=== PATIENT | male | born 1950 | race Caucasian/White ===

== ENCOUNTER 2017-02-01 09:23 | Day surgery (SDC) | payer MEDICARE, OTHER ==
[~2017-02-01] VITALS: Ht 175.3 cm; Wt 111.6 kg
[~2017-02-01 09:23] MED LIST: ALBU6.7H INH; ALLO300T2 PO; ASPI-628 PO; ATOR80TA77 PO; CARV12.52 PO; FENO145T19 PO; FLUT12AE8 IH; FURO40SO4 PO; INSU100I; INSU100I13 SUBQ; LORA10CA PO; Lactated Ringer's 1,000 ML IV ONE; OMEG1CAP25 PO; POTA10TA12 PO; PRE20 PO; TADA20TA PO; TEST1.25 TD; [UNRECOGNIZED DRUG - CODE] PO
[2017-02-01] MEDS ORDERED: fentaNYL-PF 50 mCg/mL 2 mL Inj ONE (09:24)
[2017-02-01 10:00] VITALS: BP 144/85; PULSE 59; RESP 18; O2SAT 98
[2017-02-01] MEDS ORDERED: Lactated Ringer's 1,000 ML IV SCH (10:16)
--- NOTE | 2017-02-01 10:16 | PCM.HPANE ---
Patient Data Surgeon Admitting Provider: Attending Provider:Lui Gómez MD Primary Care Physician:Bessie Newberry MD Other Provider:Stephanie Hernandez Anesthesia Reason for Visit Colon Cancer Screening Ht/WT & BMI Height (Feet): 5 Height (Inches): 9 Weight (Kilograms): 111.58 Body Mass Index 36.00 Allergies Coded Allergies: No Known Allergies (Verified Allergy, Unknown, 04/25/15) Uncoded Allergies: INCREASED CONCENTRATION OF SODIUM PRODUCTS (Adverse Reaction, Severe, COUGH , 02/02/13) Past Anesthesia History Anesthesia History: Denies:: Abnormal Airway, Anesthesia Reactions, Difficult Intubation, Fam Malignant Hypertherm, Malignant Hyperthermia Diabetes History Hx Diabetes?: Yes Type of Diabetes: Type II Glycemic Control: Insulin Dependent Current Bedside Blood Glucose: 140 MRSA MRSA: No Medications Blood Thinner: Aspirin Reported Medications Testosterone (Androgel)1.25 Gm Gel.packet1.25 Gm TD DAILY 01/31/17 Albuterol Sulfate (Proventil HFA Inhaler)6.7 Gm Hfa.aer.ad2 Puff INH Q4 PRN For Shortness of Breath #1 INHALER Ref 0 04/23/15 Prednisone (PredniSONE)20 Mg Bytkqo68 Mg PO DAILY PRN gout flare Ref 0 04/23/15 Potassium Chloride ER 10 Meq Tablet.er10 Meq PO DAILY 30 Days Ref 0 TAKE WITH FOOD 04/23/15 [place]-3 Fatty Acids/Fish Oil ([place] 3 Fish Oil Softgel)1 Each Capsule.dr2 Each PO DAILY 04/23/15 Insulin Aspart (NovoLOG U-100 Pen)100 Unit/Ml Insuln.pen30 Bid 04/23/15 Insulin Glargine (Lantus U100 Solostar Insulin Pen)100 Unit/1 Ml Insuln.pen40 Unit SUBQ BID #1 PENINJ Ref 0 04/23/15 Furosemide 40 Mg/4 Ml Sgjoljlx86 Mg PO DAILY 30 Days Ref 0 04/23/15 Fluticasone Propionate (Flovent HFA 110 mcg)12 Gm Aer.w.adap1 Puff IH BID #12 GM Ref 0 04/23/15 Methylcellulose (Fiber Therapy)500 Mg Wormwq461 Mg PO DAILY 04/23/15 Fenofibrate Nanocrystallized (Fenofibrate)145 Mg Qpkcwp541 Mg PO HS 30 Days Ref 0 04/23/15 Loratadine (Claritin)10 Mg Fpawvux59 Mg PO DAILY 30 Days Ref 0 04/23/15 Carvedilol 12.5 Mg Knnwpo86.5 Mg PO BID 30 Days Ref 0 04/23/15 Atorvastatin Calcium 80 Mg Voqgqs24 Mg PO DAILY 30 Days Ref 0 04/23/15 Aspirin (Aspir 81)81 Mg Tablet.dr81 Mg PO DAILY Ref 0 04/23/15 Allopurinol 300 Mg Pucypa450 Mg PO DAILY #30 TABLET Ref 0 04/23/15 Discontinued Reported Medications Tadalafil (Cialis)20 Mg Qfiqur18 Mg PO PRN PRN erectile dysfunction 30 Days Ref 0 As directed by physician. 04/23/15 Amlodipine 5 Mg Tablet5 Mg PO DAILY 30 Days Ref 0 04/23/15 Tamsulosin ER 0.4 Mg Cap.er.24h0.4 Mg PO DAILY 30 Days Ref 0 04/23/15 History History of ENT Problems?: Yes HEENT History: Positive for:: Hearing Problem (slight WAINWRIGHT) Denies:: Abnormal Airway Cataracts Difficult Intubation Dysphagia Sinus Problem (HX NASAL FX) TMJ Hx of Heart Problems?: Yes Cardiovascular History: Positive for:: Hypertension (HYPERLIPIDEMIA) Denies:: AICD Abdominal Aortic Aneurism Atrial Fibrillation Cardiac Surgery Chest Pain Congestive Heart Failure Edema Heart Murmur Irregular Heartbeat Pacemaker Rheumatic Fever Thrombophlebitis Valvular Heart Disease Hx of Respiratory Problem?: Yes Respiratory History: Positive for:: Asthma Cough Use of C-PAP Machine (LUCY+) Denies:: Chest Surgery (HX OF PNEUMOTHORAX) Oxygen Administration Hx Neurologic Problems?: No Neurological History: Denies:: Alzheimer's Disease CVA Dementia Dizziness Headaches Multiple Sclerosis Parkinson's Disease Seizures Hx of GI Problems?: Yes Gastrointestinal History: Positive for:: Gastroesphageal Reflux Denies:: Cirrhosis Diverticulitis (HX DIVERTICULOSIS) Gastrointestinal Bleeding Heartburn Hepatitis Hiatal Hernia Rectal Bleeding Other GI Pertinent History: HAS ONLY ONE KIDNEY @ 20 % Hx of Problems?: Yes Genitourinary History: Denies:: HX of Hemodialysis (HX OF CHRONIC RENAL INSUFF , & ANEMIA) Male Hx: Positive for:: Prostate Problems (BPH) Testicular Surgery (S/P VASECTOMY) Denies:: Scrotal Mass Skin History: Denies:: History Skin Disorders? (S/P EXC BENIGN TUMOR POSTERIOR NECK) Pressure Ulcers Hx Musculoskeletal Problems?: Yes Musculoskeletal History: Denies:: Back Injury Degenerative Joint Joint Replacement Musculoskeletal Trauma Systemic Lupus Hx of Psycho/Social Problems?: No Psycho Social History: Denies:: Anxiety Hx Depression Hx Surgeries?: Yes (nephrectomy, chela) Hx Any Other Health Problems?: No Other History: Positive for:: Cancer (renal cancer) Denies:: Endocrine Disease Hospitalization Thyroid Disease History Blood Transfusions: Denies:: Blood Transfuse Reaction Blood Transfusions Hx Diabetes: YesBedside Blood Glucose: 140 Hx Alcohol Use: NoHx Substance Use: No Smoking Status: Never Smoker Have You Smoked inLast 12 mo: No Stop/Bang Treated for Sleep Apnea?: Yes Do You Have a CPAP Machine?: Yes LUCY Risk Assessment: High Risk, =/>3 Yes Risk Assessment Category Category 1A: Patient has history of documented sleep apnea, and HAS NOT received any narcotic, sedative or anesthesia administration during this stay. Category 1B: Patient has history of documented sleep apnea, and HAS received any narcotic , sedative or anesthesia administration during this stay Category 2: Patient has SUSPECTED Obstructive Sleep Apnea, and HAS received any narcotic , sedative or anesthesia administration during this stay. Category 3: Patient has SUSPECTED Obstructive Sleep Apnea and HAS NOT received narcotic, sedative or anesthesia administration during this stay. Category 4: Outpatient in Procedural Areas with known sleep apnea or who screen positive for High Risk via the STOP/BANG questionnaire. Exam Exam Vital Signs Vital Signs Date Time Temp Pulse Resp B/P Pulse Ox O2 Delivery O2 Flow Rate FiO2 02/01/17 10:00 59 18 144/85 98 Room Air General Appearance: Alert, Oriented X3, Cooperative, No Acute Distress HEENT/AIRWAY: MP 2 Lungs: Clear to Auscultation, Normal Air Movement Heart: Exam Unremarkable, Regular Rate/Rhythm, No Murmurs/Rubs/Gallops Meds/Labs/Diagnostics Bedside Blood Glucose: 140 Plan Impression Patient chart reviewed, patient interviewed and anesthestic plan with risks, benefits, and alternatives discussed, and informed consent obtained. NPO Status: > 8 hrs ASA Physical Status: ASA3 Severe Disease Anesthetic Plan: MAC Bene/Risks/Altern/Consents: Yes HP Complete Prior to Induction: Yes Neri Salinas MD Feb 01, 2017 10:16
[2017-02-01] MEDS ORDERED: MetoCLOpramide 5 mg/mL 2 mL Inj IVPUSH PRN (10:20)
[2017-02-01] MEDS ORDERED: Ondansetron 2 mg/mL 2 mL Inj IVPUSH PRN (10:20)
[2017-02-01 11:16] VITALS: BP 111/64; PULSE 53; RESP 14; O2SAT 94
[2017-02-01 11:25] VITALS: BP 133/74; PULSE 53; RESP 12; O2SAT 95
--- NOTE | 2017-02-01 11:25 | PCM.ANEP1 ---
Post Anesthesia Phase 1 PACU Phase 1 Assessment Vital Signs Vital Signs Date Time Temp Pulse Resp B/P Pulse Ox O2 Delivery O2 Flow Rate FiO2 02/01/17 11:16 53 14 111/64 94 Room Air 02/01/17 10:00 59 18 144/85 98 Room Air Anesthetic Administered: MAC Level of Alertness: Awake, talking ROCHA's with Equal Strength: Yes Pain: No Nausea or Vomiting: No Oxygen Delivery: Room Air Lungs: Clear to Auscultation, Normal Air Movement Dermatome Level: Full Sensation Neri Salinas MD Feb 01, 2017 11:25
--- NOTE | 2017-02-01 11:39 | PCM.ANEP2 ---
Post Anesthesia Evaluation ASA/CMS Post Anesthesia VS in Patient's Normal Range?: Yes Resp Stable; Airway Patent?: Yes CV Function & Hydration Stable: Yes Mental Status Recovered?: Yes Pain control Satisfactory?: Yes N/V Control Satisfactory?: Yes Neri Salinas MD Feb 01, 2017 11:38
--- NOTE | 2017-02-01 11:45 | ENDO ---
[address] [address] ENDOSCOPY PROCEDURE PATIENT: JANNET ROMERO : 1950 MR#: [id number] ADMIT: 02/01/2017 JOB ID: [id number] DATE: 02/01/2017 PRIMARY PROVIDER: Bessie Newberry MD. PROCEDURE: Colonoscopy with cold forceps polypectomy. INDICATION: A 66-year-old male who reports for colon cancer screening. EQUIPMENT: PCF-H180 AL. SEDATION: Monitored anesthesia with as provided by Dr. Neri Salinas. COMPLICATIONS: None identified. BOWEL PREPARATION: Fair, adequate exam. PROCEDURE INFORMATION: After the risks and benefits were explained, written and verbal informed consent was obtained. The patient was brought into the endoscopy suite and placed into the left lateral decubitus position. Sedation was achieved as above. A digital rectal examination accomplished. No significant pathology appreciated. The scope was introduced into the rectum and advanced to the level of the ileocecal valve with excellent looks down into the cecum. The scope was slowly withdrawn to carefully examine the mucosa for any defects or lesions. Multiple direct views were made through the dentate line for exclusion of pathology. The colon was decompressed. The scope removed from the patient who tolerated the procedure well. FINDINGS: Some diverticulosis was seen in the left colon. Very diminutive, probably hyperplastic polyp removed from the rectum with cold forceps. During the exam to help control any potential bowel herniation, we held mild to moderate abdominal pressure in essence to keep these hernias reduced. ENDOSCOPIC DIAGNOSES: 1. Diminutive polyp. 2. Diverticulosis. RECOMMENDATIONS: 1. Await histopathology. 2. If hyperplastic, repeat colonoscopy in 10 years, if adenoma repeat in 5 years. 3. Proceed with surgical consultation for hernia repairs as previously recommended.
--- NOTE | 2017-02-08 16:04 | PATH ---
SURGICAL PATHOLOGY Attending Physician:Troy Montero CASE STATUS: Signed Out * Amended * PATIENT NAME: JANNET ROMERO PID: [id number] : 1950 DATE COLLECTED:02/01/2017 17:41 SPECIMEN: Rectum, Biopsy CLINICAL HISTORY: 1). RECTAL POLYP FINAL DIAGNOSIS: Rectum, Polyp, Biopsy: Hyperplastic polyp. ICD10 K62.1 This case was reviewed and interpreted by Dr. Yasmine Figueredo. The final diagnosis is unchanged. This amendment is issued in order for the report to cross the interface and be available in the hospital electronic medical record. GROSS DESCRIPTION: The specimen is received in one formalin filled container labeled with the patient's name, sublabeled "rectal polyp" and consists of a 0.2 x 0.2 x 0.2 CM portion of tissue which is entirely submitted in one cassette. 02/01/2017 [facility] ICD-9 CODES: CPT CODES: 1: 75717 AMENDMENT(S): Amended: 02/08/2017 by Sofia Holland Reason:Miscellaneous The final diagnosis is unchanged. This amendment is issued in order for the report to cross the interface and be available in the hospital electronic medical record. Previous Signout Date: 02/03/2017 Electronically Signed Out Lauren Baker MD [facility] Pathology [facility] [address], [place] [address] Technical component performed at [facility], [address] [place] [address] Ave[address], [place], [address]
== END 2017-02-01 23:59 | disposition home or self-care (01) ==
LOC: END 09:23
PROVIDERS: ATTEND Internal Medicine Gastroenterology
DX: Z12.11 Encounter for screening for malignant neoplasm of colon (principal); K62.1 Rectal polyp; K57.30 Diverticulosis of large intestine without perforation or abscess without bleeding; I12.9 Hypertensive chronic kidney disease with stage 1 through stage 4 chronic kidney disease, or unspecified chronic kidney disease; E78.5 Hyperlipidemia, unspecified; N18.9 Chronic kidney disease, unspecified; E11.21 Type 2 diabetes mellitus with diabetic nephropathy; J45.909 Unspecified asthma, uncomplicated; K56.69 Other intestinal obstruction; E66.3 Overweight; K21.9 Gastro-esophageal reflux disease without esophagitis; G47.33 Obstructive sleep apnea (adult) (pediatric); D64.9 Anemia, unspecified; Z85.528 Personal history of other malignant neoplasm of kidney; Z68.37 Body mass index [BMI] 37.0-37.9, adult; Z79.82 Long term (current) use of aspirin; Z79.4 Long term (current) use of insulin; Z90.5 Acquired absence of kidney
CPT/HCPCS: 45380; 88305; J2250; J3010; J7120

== ENCOUNTER → 2017-07-27 | Day surgery (SDC) | payer MEDICARE, OTHER ==
[~2017-07-27] VITALS: Ht 175.3 cm; Wt 107.4 kg
[2017-07-27] VITALS (9 sets, daily range): BP systolic 105–137; BP diastolic 57–74; PULSE 51–64; RESP 6–16; O2SAT 94–96
[~2017-07-27] MED LIST changes: +0.9% Sodium Chloride 500 ML IV ONE; +ACET-171 PO; -ASPI-628 PO; +ASPI-973 PO; +ATOR80TA PO; -ATOR80TA77 PO; +Albuterol-Ipratropium 3 mL Inhalation Solution NEB PRN; +Atropine 0.4 mg/mL Inj IVPUSH PRN; +Bupivacaine-MPF 0.5% 30 mL Inj INFILTRATE ONE; +CALC0.257 PO; -CARV12.52 PO; +CARV6.25 PO; +CETI10CA PO; +CHOL10008 PO; +COLC0.6C3 PO; +Dexamethasone 4 mg/mL Inj IVPUSH PRN; +Dexamethasone 4 mg/mL Inj ONE; +EPHEDrine Sulfate 50 mg/mL Inj IVPUSH PRN; +EPHEDrine/NS 5 mg/mL 5 mL Syringe ONE; +FLUT100D2 IH; -FLUT12AE8 IH; -FURO40SO4 PO; +FURO40TA4 PO; +Glycopyrrolate 0.2 MG/ML 1mL Inj ONE; +HYDROmorphone 1 mg/mL Inj IVPUSH PRN; +Heparin 1,000 Units/mL 10 mL DVT/PE Bolus Inj IVPUSH ONE; +INSU100C8 SUBQ; -INSU100I; -INSU100I13 SUBQ; +INSU100V7 SUBQ; -LORA10CA PO; +Labetalol 5 mg/mL 20 mL Inj IV PRN; +Lactated Ringer's 1,000 ML IV SCH; +Lactated Ringer's 500 ML IV PRN; +MetoCLOpramide 5 mg/mL 2 mL Inj IVPUSH PRN; +OXYC-530 PO; +Ondansetron 2 mg/mL 2 mL Inj IVPUSH PRN; +Ondansetron 2 mg/mL 2 mL Inj ONE; +POLY17PO6 PO; +POTA-62 PO; -POTA10TA12 PO; +Papaverine 30 mg/mL 2 mL Inj IV ONE; +Phenylephrine 10,000 mCg/mL Inj IVPUSH PRN; +Phenylephrine/NS 100 mCg/mL 10 mL Syringe IVPUSH ONE; +Propofol 10,000 mCg/mL 20 mL Inj ONE; +SIME125C PO; +SODI325T PO; -TADA20TA PO; -TEST1.25 TD; -[UNRECOGNIZED DRUG - CODE] PO; +fentaNYL-PF 50 mCg/mL 2 mL Inj IVPUSH PRN; +fentaNYL-PF 50 mCg/mL 2 mL Inj ONE; +fiber; +flaxseed oil
--- NOTE | 2017-07-27 07:57 | PCM.HPANE ---
Patient Data Surgeon Admitting Provider: Attending Provider:Evon Jamil MD Primary Care Physician:Eugenia Andrew PA-C Other Provider:Cherelle Hernandezingham Anesthesia Reason for Visit Chronic Renal Failure Ht/WT & BMI Height (Feet): 5 Height (Inches): 9 Weight (Kilograms): 107.4 Body Mass Index 35.00 Allergies Coded Allergies: No Known Allergies (Verified Allergy, Unknown, 04/25/15) Uncoded Allergies: INCREASED CONCENTRATION OF SODIUM PRODUCTS (Adverse Reaction, Severe, COUGH , 02/02/13) Past Anesthesia History Anesthesia History: Denies:: Abnormal Airway, Anesthesia Reactions, Difficult Intubation, Fam Anesthesia Reaction, Fam Malignant Hypertherm, Malignant Hyperthermia Diabetes History Hx Diabetes?: Yes Type of Diabetes: Type II Glycemic Control: Insulin Dependent Current Bedside Blood Glucose: 142 MRSA MRSA: No Medications Blood Thinner: Aspirin Hypertension Medication: Yes Home Meds Incl Beta Laura: Yes Date Beta Laura Taken: Jul 27, 2017 Time Beta Laura Taken: 0500 Reported Medications Carvedilol (Coreg)6.25 Mg Tablet6.25 Mg PO BID Ref 0 07/27/17 Cetirizine HCl (Zyrtec)10 Mg Lykucfl91 Mg PO HS #30 CAPSULE Ref 0 07/19/17 Cholecalciferol (Vitamin D3) (Vitamin D3)1,000 Unit Tab.chew1,000 Unit PO DAILY 07/19/17 Sodium Bicarbonate 325 Mg Zugtwr122 Mg PO DAILY 07/19/17 Simethicone (Gas-X)125 Mg Wvrungw456 Mg PO QID PRN bloating 07/19/17 Albuterol Sulfate (Proventil HFA Inhaler)6.7 Gm Hfa.aer.ad2 Puff INH Q4 PRN For Shortness of Breath #1 INHALER Ref 0 07/19/17 Potassium Chloride ER 20 Meq Tablet.er20 Meq PO BID Ref 0 TAKE WITH FOOD 07/19/17 [place]-3 Fatty Acids/Fish Oil ([place] 3 Fish Oil Softgel)1 Each Capsule.dr3 Each PO BID 07/19/17 Insulin Aspart (NovoLOG U100 Insulin Vial)100 U/Ml UUnknown Dose SUBQ DIRECTED PRN blood sugars #1 VIAL Ref 0 07/19/17 Insulin Glargine (Lantus U100 Insulin Vial)100 Unit/Ml VialUnknown Dose SUBQ DIRECTED #1 VIAL Ref 0 07/19/17 Furosemide 40 Mg Vfdror27 Mg PO BID 07/19/17 Fluticasone Propionate (Flovent Diskus)100 Mcg Disk.w.dev1 Puff IH BID #1 INHALER Ref 0 07/19/17 [flaxseed oil] No Conflict Check3,000 Mg DAILY 07/19/17 [fiber ] No Conflict Fcujn685 Mg BID 07/19/17 Fenofibrate Nanocrystallized (Fenofibrate)145 Mg Vyojdr662 Mg PO DAILY Ref 0 07/19/17 Colchicine 0.6 Mg Capsule0.6 Mg PO DAILY 07/19/17 Calcitriol (Rocaltrol)0.25 Mcg Capsule0.5 Mcg PO DAILY 07/19/17 Atorvastatin (Lipitor)80 Mg Rutdmy37 Mg PO DAILY Ref 0 07/19/17 Aspirin 81 Mg Sahlfn88 Mg PO DAILY Ref 0 07/19/17 Allopurinol 300 Mg Jalqnh379 Mg PO DAILY Ref 0 07/19/17 Discontinued Reported Medications Prednisone (PredniSONE)20 Mg Zcuwqp09 Mg PO DAILY Ref 0 07/19/17 History History of ENT Problems?: Yes HEENT History: Denies:: Abnormal Airway Cataracts Difficult Intubation Dysphagia Glaucoma Hearing Problem Sinus Problem (hx of nasal fx) TMJ Denture Type: None Teeth Condition: Within Normal Limits Hx of Heart Problems?: Yes Cardiovascular History: Positive for:: Hypertension Denies:: AICD Abdominal Aortic Aneurism Atrial Fibrillation Cardiac Surgery Chest Pain Congestive Heart Failure Edema Heart Murmur Irregular Heartbeat Pacemaker Rheumatic Fever Thrombophlebitis Valvular Heart Disease Hx of Respiratory Problem?: Yes Respiratory History: Positive for:: Use of C-PAP Machine Denies:: Asthma Chest Surgery (HX OF PNEUMOTHORAX) Cough Oxygen Administration Pneumonia Tuberculosis Hx Neurologic Problems?: No Neurological History: Denies:: Alzheimer's Disease CVA Dementia Dizziness Headaches Multiple Sclerosis Parkinson's Disease Seizures Hx of GI Problems?: Yes Other GI Pertinent History: pt has hx of intragastric balloon facilitating weight loss, pt states will be removed prior to surgery. Hx of multiple abdominal wall hernias Hx of Problems?: Yes Genitourinary History: Positive for:: Urinary Tract Infection (urinary infections frequently) Denies:: HX of Hemodialysis (CKD stage IV) Kidney Stones Other Pertinent History: self caths daily Pt has prior hx of nephrectomy- 2012- with renal ca diagnosis nephrectomy of remaining kidney recommended. Male Hx: Positive for:: Prostate Problems (BPH) Testicular Surgery (S/P VASECTOMY) Denies:: Scrotal Mass Skin History: Denies:: History Skin Disorders? Pressure Ulcers Hx Musculoskeletal Problems?: Yes Musculoskeletal History: Positive for:: Osteoarthritis Denies:: Back Injury Degenerative Joint Fibromyalgia Joint Replacement Musculoskeletal Trauma (left hip bone spur) Systemic Lupus Hx of Psycho/Social Problems?: No Psycho Social History: Denies:: Anxiety Hx Depression Hx Surgeries?: Yes (nephrectomy, chela) Hx Any Other Health Problems?: Yes Other History: Positive for:: Cancer (renal cancer) Denies:: Endocrine Disease Hospitalization Thyroid Disease History Blood Transfusions: Positive for:: Accept Blood Products? Denies:: Blood Transfuse Reaction Blood Transfusions Hx Diabetes: YesBedside Blood Glucose: 142 Hx Alcohol Use: YesAlcoholic Drinks Per Day: once yearlyHx Substance Use: No Smoking Status: Never Smoker Have You Smoked inLast 12 mo: No Stop/Bang Treated for Sleep Apnea?: Yes Do You Have a CPAP Machine?: Yes P-Blood Pressure: treated: Yes B- Body Mass Index > 35 kg/m2: No A- Age over 50: Yes N- Neck Large Circumference: No G- Gender Male: Yes LUCY Risk Assessment: Low Risk, <3 Yes LUCY Category 4 OutPt Procedure: Yes Risk Assessment Category Category 1A: Patient has history of documented sleep apnea, and HAS NOT received any narcotic, sedative or anesthesia administration during this stay. Category 1B: Patient has history of documented sleep apnea, and HAS received any narcotic , sedative or anesthesia administration during this stay Category 2: Patient has SUSPECTED Obstructive Sleep Apnea, and HAS received any narcotic , sedative or anesthesia administration during this stay. Category 3: Patient has SUSPECTED Obstructive Sleep Apnea and HAS NOT received narcotic, sedative or anesthesia administration during this stay. Category 4: Outpatient in Procedural Areas with known sleep apnea or who screen positive for High Risk via the STOP/BANG questionnaire. Exam Exam Vital Signs Vital Signs Date Time Temp Pulse Resp B/P Pulse Ox O2 Delivery O2 Flow Rate FiO2 07/27/17 06:45 36.1 51 16 137/68 94 Room Air General Appearance: Alert, Oriented X3, Cooperative, No Acute Distress HEENT/AIRWAY: MP 3, Neck Movement (limited), Mouth Opening (3FB) Lungs: Normal Air Movement Heart: Exam Unremarkable Meds/Labs/Diagnostics Admission Meds Current Medications Sodium Chloride (Normal Saline) 500 ml @ ud STK-MED ONCE IV Last administered on 07/27/17t 06:38; Start 07/27/17 at 06:38; Stop 07/27/17 at 06:39; Status DC Bedside Blood Glucose: 142 Plan Impression Patient chart reviewed, patient interviewed and anesthestic plan with risks, benefits, and alternatives discussed, and informed consent obtained. NPO per Anesth. Guidelines: Yes ASA Physical Status: ASA3 Severe Disease Anesthetic Plan: GA Bene/Risks/Altern/Consents: Yes HP Complete Prior to Induction: Yes Onesimo Young MD Jul 27, 2017 07:57
--- NOTE | 2017-07-27 10:42 | PCM.SURGOP ---
Surgical Operative Report Date of Service: Jul 27, 2017 Pre Operative Diagnosis Chronic renal failure Post Operative Diagnosis Chronic renal failure Procedure: Left radiocephalic arteriovenous fistula Surgeon and Pharmacist Apprentice: Surgeon: Evon Jamil MD Assistants: Chelsea Reeves MD R3 Indication for Procedure This is a 66-year-old man with a history of right nephrectomy in 2012 for a mass that initially presented with retroperitoneal bleeding and was found to be malignant on surveillance imaging. Since that time, he has undergone surveillance CT scans and was found to have a left-sided kidney cancer which will necessitate nephrectomy. Given his impending anephric status, a fistula was requested for future dialysis. Findings: Adequate left radial and left cephalic vein to create a sizable anastomosis with good thrill at the end of the case. Procedure Details The patient was brought to the operating room and placed in supine position. Moderate anesthesia was induced. A warming blanket and SCDs were placed. The operative field was prepped and draped in sterile fashion. A preoperative pause was performed to confirm the correct patient, procedure, site, and side. A longitudinal incision was made just lateral to the left radial artery, 5 cm in length. The artery was easily identified and the dissection proceeded in order to identify the left cephalic vein, which was found to be large enough to create an adequate fistula. The vein was dissected proximally and distally, as was the artery. The radial artery had two small branches which were clipped. Vessel loops were placed around the proximal and distal ends of the main artery. The distal end of the vein was tied off and shaped with Sharma scissors to create a bustamante. An arteriotomy was created and the ends of the artery and vein were flushed with heparinized saline. An anastomosis was created from the side of the artery to the end of the vein using a running 6-0 Prolene suture. The anastomosis itself was approximately 1.5 cm in length. There was a palpable pulse and excellent thrill at the end of the case through the anastomosis. Subcutaneous tissue was closed with interrupted 3-0 Vicryl stitches. The skin was closed with a running 4-0 Vicryl stitch. Dermabond was placed. The patient was awakened from moderate sedation and taken to the post procedure unit in good condition. Complications There were no periprocedural complications identified. Surgical Specimen Removed: No Specimen sent to Pathology: No Anesthetic Plan: GA Grafts, Implants: None Output, Estimated Blood Loss: 5 (ml) Blood Administration during pedroza: No Evon Jamil MD Jul 27, 2017 10:42
--- NOTE | 2017-07-27 10:51 | PCM.DISURG ---
Surgical Discharge Instruction Date of Service Jul 27, 2017 Dates of Hospitalization Date of Hospital Admission Providers Admitting Physician: Primary Care Physician: Eugenia Andrew PA-C Attending Physician: Evon Jamil MD Discharge Diagnosis Post Operative diagnosis Chronic renal failure Diet Discharge Diet: No restrictions Activity Discharge Activity-General: Other (No compressive garments or pressure on left upper extremity.) Dressing and Incisional Care Dressing Care: Other (Dermabond dressing will flake off in 1-2 weeks.) Hygiene: May shower Follow Up Plan Follow-up Provider (F9): Evon Jamil MD Follow-up appointment: Weeks (2-4) Chelsea Reeves MD Jul 27, 2017 10:51
--- NOTE | 2017-07-27 11:11 | PCM.ANEP1 ---
Post Anesthesia PACU Phase 1 Assessment Vital Signs Vital Signs Date Time Temp Pulse Resp B/P Pulse Ox O2 Delivery O2 Flow Rate FiO2 07/27/17 11:05 36.3 62 12 110/57 96 Room Air 07/27/17 11:00 60 11 115/61 96 Room Air 07/27/17 10:55 60 10 119/63 94 Room Air 07/27/17 10:50 58 6 130/69 95 Room Air 07/27/17 10:45 36.8 64 14 127/74 96 Room Air 07/27/17 06:45 36.1 51 16 137/68 94 Room Air Anesthetic Administered: GA Level of Alertness: Awake, talking ROCHA's with Equal Strength: Yes Pain: No Nausea or Vomiting: No CV Function & Hydration Stable: Yes Airway Device: Oxygen Delivery: Room Air Lungs: Normal Air Movement PACU Phase 2 Assessment Complications: No Follow up Care: No Patient Instructions Provided: N/A Onesimo Young MD Jul 27, 2017 11:11
== END | disposition home or self-care (01) ==
LOC: SAS 06:22
PROVIDERS: ATTEND Surgery
DX: I12.9 Hypertensive chronic kidney disease with stage 1 through stage 4 chronic kidney disease, or unspecified chronic kidney disease (principal); E11.22 Type 2 diabetes mellitus with diabetic chronic kidney disease; N18.4 Chronic kidney disease, stage 4 (severe); E78.5 Hyperlipidemia, unspecified; G47.33 Obstructive sleep apnea (adult) (pediatric); D64.9 Anemia, unspecified; M10.9 Gout, unspecified; Z94.0 Kidney transplant status; E66.9 Obesity, unspecified; Z68.37 Body mass index [BMI] 37.0-37.9, adult; Z79.4 Long term (current) use of insulin
CPT/HCPCS: 36818; J1100; J1644; J2250; J2370; J2405; J2704; J3010; J7030